=== PATIENT | female | born 1940 | race Two or more races ===

== ENCOUNTER 2016-08-22 09:41 | Emergency (ER) | payer MEDICARE, OTHER ==
[~2016-08-22] VITALS: Wt 72.7 kg
[2016-08-22] MEDS ORDERED: SOD CHLORIDE 0.9% 1,000 ML IV STA (09:57)
[2016-08-22] MEDS ORDERED: FAMOTIDINE 20 MG INJ IV STA (09:57)
[2016-08-22] MEDS ORDERED: ONDANSETRON 4 MG INJ IV STA (09:57)
[2016-08-22] MEDS ORDERED: LISI-313 PO (10:33)
[2016-08-22] MEDS ORDERED: DEXL60CA2 PO (10:33)
[2016-08-22] MEDS ORDERED: CLOP75TA27 PO (10:33)
[2016-08-22 10:45] LABS: BASOPHILS % 0.8 % (0.0-2.0); EOSINOPHILS # 0.1 10^3/ul (0.0-0.5); EOSINOPHILS % 1.7 % (0.0-7.0); HEMATOCRIT 40.5 % (37.0-47.0); HEMOGLOBIN 13.4 g/dl (12.0-16.0); LYMPHOCYTES % 33.7 % (15.0-51.0); MEAN CORPUSCULAR HEMOGLOBIN 30.4 pg (29.0-33.0); MEAN CORPUSCULAR HGB CONC 33.2 g/dl (32.0-37.0); MEAN CORPUSCULAR VOLUME 91.5 fl (82.0-101.0); MEAN PLATELET VOLUME 9.1 fl (7.4-10.4); MONOCYTE # 0.5 10^3/ul (0.3-0.9); MONOCYTES % 8.4 % (0.0-11.0); NEUTROPHIL # 3.3 10^3/ul (1.6-7.5); NEUTROPHILS % 55.4 % (39.0-77.0); PLATELET COUNT 199 10^3/UL (140-440); RED BLOOD COUNT 4.43 10^6/ul (4.20-5.40); RED CELL DISTRIBUTION WIDTH 13.1 % (11.5-14.5)
[2016-08-22 10:46] LABS: ADD UMIC YES; URINE BILIRUBIN (Dip) NEGATIVE (NEGATIVE); URINE BLOOD (Dip) 3+ (NEGATIVE); URINE COLOR LT. YELLOW (YELLOW); URINE GLUCOSE (Dip) NEGATIVE (NEGATIVE); URINE KETONES (Dip) NEGATIVE (NEGATIVE); URINE LEUKOCYTE ESTERASE (Dip) 1+ (NEGATIVE); URINE NITRITE (Dip) NEGATIVE (NEGATIVE); URINE TOTAL PROTEIN (Dip) NEGATIVE (NEGATIVE); URINE UROBILINOGEN (Dip) 0.2 E.U./dL (0.1-1.0)
[2016-08-22 10:47] LABS: CONDITION 1
[2016-08-22 10:51] LABS: ALBUMIN 4.2 g/dl (3.3-4.9)
[2016-08-22 10:54] LABS: ALBUMIN/GLOBULIN RATIO 1.23; BILIRUBIN,INDIRECT 0.5 mg/dl (0-1.1); BILIRUBIN,TOTAL 0.5 mg/dl (0.2-1.3); CALCIUM 9.3 mg/dl (8.4-10.2); CREATININE 0.6 mg/dl (0.44-1.00); TOTAL PROTEIN 7.6 g/dl (6.1-8.1)
[2016-08-22 11:04] LABS: BACTERIA,URINE RARE
--- NOTE | 2016-08-22 11:25 | RADRPT ---
PROCEDURE: CT Abdomen and Pelvis without contrast. CLINICAL INDICATION: Abdominal pelvic pain. TECHNIQUE: CT scan of the abdomen and pelvis without contrast was performed on a multidetector hig h-resolution CT scanner. The patient was scanned without intravenous contrast. Coronal and sagittal reformatted images were obtained from the axial source images. Images were reviewed on a high-resol [employer] PACS workstation. The total exam CTDI equals 16.64 mGy and the total exam DLP equals 910.73 mG y-cm. One or more of the following dose reduction techniques were used: - Automated exposure control. - Adjustment of the mA and/or kV according to patient size. - Use of iterative reconstruction technique. COMPARISON: None. FINDINGS: CT abdomen: The lung bases are clear. The heart size is normal, without pericardial thickening or effusion. Ab undant coronary artery atherosclerotic vascular calcifications are identified. The liver is normal in size and density without focal mass or intrahepatic biliary dilatation. The spleen is normal in size and homogeneous in density. The stomach is partially collapsed, but is grossly unremarkable. The pancreas as visualized is normal. The gallbladder is remarkable for a tiny layering gallstones; the biliary tree is unremarkable and there is no evidence for biliary dilatation. The adrenal glan ds are symmetric and normal. The kidneys are symmetrically unremarkable as well. Small 4 mm calcul us is seen in the right, nonobstructive in nature. No obstructive uropathy or mass lesion is seen. The aorta is of normal caliber. Aortic vascular calcifications are present. There is no retroperit avelar lymphadenopathy. The teri hepatis region is clear. The bowel and mesentery, as visualized, are equally unremarkable. The right colon is redundant and coiled, terminating in the right anterola teral mid abdomen region. The left colon is collapsed and decompressed. CT pelvis: The small bowel loops situated within the pelvis are unremarkable. The pelvic organs are remarkable for previous hysterectomy. The pelvic sidewalls and inguinal regions are clear. The sigmoid colon and rectum are collapsed and decompressed, but otherwise grossly unremarkable. No definite acute i nflammation is seen at this time. No mass or adenopathy is seen. No free fluid is present. No acute inflammation is identified at this time. The bladder is distended with mild anterior bladder wall thickening. The surrounding osseous structures are remarkable for degenerative spondylosis of the spine. No ost eolytic or osteoblastic lesion is detected. Moderate to severe compression fracture of the L4 verteb ral body is identified. There is moderate and significant anterolisthesis of L4 on L5. Severe disc ogenic disease with vacuum disk phenomenon seen for and L4-5 levels. Significant posterior element facet arthropathy of the lower lumbar spine is seen as well. Large anterior osteophytes with degene rate spondylosis of the lower thoracic and upper lumbar spine is also present. Significant multilev el neural foraminal narrowing of the lumbar spine is seen. IMPRESSION: 1. No acute abdominal pelvic inflammatory process is identified. 2. Small nonobstructing right lower pole renal calculus. 3. Small layering gallstones without evidence for acute cholecystitis. 4. Advanced diffuse scattered benign chronic age-related senescent changes. 5. No mass, lymphadenopathy, or evidence for neoplasm is present. 6. Severe chronic changes of the spine, as detailed above. 7. The left colon and sigmoid colon and rectum appears collapsed and decompressed at the time of th e study, without evidence for definite acute inflammation. RPTAT: HMJB .Giuliano Padron MD, Date Time Electronically viewed and signed by .Giuliano Padron MD, on 08/22/2016 11:24 .B/
--- NOTE | 2016-08-22 11:41 | ERD ---
ER Documentation Chief Complaint Date/Time DATE: 08/22/16 TIME: 11:39 Chief Complaint abdominal pain and diarrhea for the past 3 days , no vomiting HPI This is a 76-year-old female who presents to the emergency room for evaluation of abdominal cramping, and diarrhea that she has had for the past 3 days. The patient does state that diarrhea is watery diarrhea and describes it as frequent and worse with any type of oral food or fluid intake. She denies any recent travel. Denies any fevers associated with this. She was seen by her primary care physician and sent to the emergency room for evaluation. ROS All systems reviewed and are negative except as per history of present illness. Medications Home Meds Reported Medications Dexlansoprazole (Dexilant) 60 Mg Douglas., 60 MG PO DAILY, #30 CAP 08/22/16 Lisinopril* (Lisinopril*) 5 Mg Tablet, 5 MG PO DAILY, #30 TAB 08/22/16 Clopidogrel Bisulfate (Clopidogrel) 75 Mg Tablet, 75 MG PO DAILY, #30 TAB 08/22/16 Allergies Allergies: Coded Allergies: Unable to Assess (Verified Allergy, Severe, 08/22/16) PMhx/Soc Medical and Surgical Hx: pt denies Medical Hx, pt denies Surgical Hx Hx Alcohol Use: No Hx Substance Use: No Hx Tobacco Use: No Smoking Status: Never smoker Physical Exam Vitals Vital Signs Date Time Temp Pulse Resp B/P Pulse Ox O2 Delivery O2 Flow Rate FiO2 08/22/16 09:48 97.9 91 20 179/78 99 Physical Exam INITIAL VITAL SIGNS: Reviewed by me GENERAL: The patient is well developed and appropriate for usual state of health in no apparent distress HEENT: Pupils equal, round, and reactive to light. EOMI. There is no scleral icterus. NECK: C-spine is soft and supple, there is no meningismus. There is no cervical lymphadenopathy. LUNGS: Clear to auscultation bilaterally. There are no rales, wheezes or rhonchi. HEART: Regular rate and rhythm, no murmurs, clicks, rubs or gallops. ABDOMEN: Soft, non-tender, non-distended. There are bowel sounds in all four quadrants. No rebound or guarding. EXTREMITIES: There is no peripheral cyanosis or edema. No focal swelling or erythema. NEUROLOGICAL: The patient moves all four extremities with 5/5 strength. Cranial nerves II - XII are intact. Normal gait. Alert and oriented SKIN: There is no apparent rash or petechiae. HEME/LYMPHATIC: There is no evidence of excessive bruising or lymphedema. PSYCHIATRIC: The patient does not appear anxious or depressed. Result Diagram: 08/22/16 1027 08/22/16 1027 Results 24 hrs Laboratory Tests Test 08/22/16 10:00 08/22/16 10:27 Urine Bacteria RARE Urine Bilirubin NEGATIVE Urine Clarity CLEAR Urine Color LT. YELLOW Urine Epithelial Cells RARE Urine Glucose NEGATIVE% Urine Hemoglobin 3+ Urine Ketones NEGATIVE Urine Leukocyte Esterase 1+ Urine Microscopic RBC 2-5/HPF Urine Microscopic WBC 2-5/HPF Urine Nitrite NEGATIVE Urine Specific [place] 1.010 Urine Total Protein NEGATIVE Urine Urobilinogen 0.2 E.U./dL Urine pH 6.5 Alanine Aminotransferase (ALT/SGPT) 21IU/L Albumin 4.2g/dl Albumin/Globulin Ratio 1.23 Alkaline Phosphatase 84IU/L Anion Gap 16 Aspartate Amino Transf (AST/SGOT) 21IU/L Basophils # 0.010^3/ul Basophils % 0.8% Blood Urea Nitrogen 10mg/dl Calcium Level 9.3mg/dl Carbon Dioxide Level 26mmol/L Chloride Level 102mmol/L Creatinine 0.60mg/dl Direct Bilirubin 0.00mg/dl Eosinophils # 0.110^3/ul Eosinophils % 1.7% Globulin 3.40g/dl Glucose Level 91mg/dl Hematocrit 40.5% Hemoglobin 13.4g/dl Indirect Bilirubin 0.5mg/dl Lipase 87U/L Lymphocytes # 2.010^3/ul Lymphocytes % 33.7% Mean Corpuscular Hemoglobin 30.4pg Mean Corpuscular Hemoglobin Concent 33.2g/dl Mean Corpuscular Volume 91.5fl Mean Platelet Volume 9.1fl Monocytes # 0.510^3/ul Monocytes % 8.4% Neutrophils # 3.310^3/ul Neutrophils % 55.4% Nucleated Red Blood Cells # 0.010^3/ul Nucleated Red Blood Cells % 0.0/100WBC Platelet Count 62412^3/UL Potassium Level 4.0mmol/L Red Blood Count 4.4310^6/ul Red Cell Distribution Width 13.1% Sodium Level 140mmol/L Total Bilirubin 0.5mg/dl Total Protein 7.6g/dl White Blood Count 6.010^3/ul Current Medications Medications (Trade) Dose Ordered Sig/Ike Route PRN Reason Start Time Stop Time Status Last Admin Dose Admin Sodium Chloride (NS) 1,000 ml @ 1,000 mls/hr Q1H STAT IV 08/22/16 09:57 08/22/16 10:56 DC 08/22/16 10:35 Ondansetron HCl (Zofran Inj) 4 mg ONCE STAT IV 08/22/16 09:57 08/22/16 09:58 DC 08/22/16 10:35 Famotidine (Pepcid Iv) 20 mg ONCE STAT IV 08/22/16 09:57 08/22/16 09:58 DC 08/22/16 10:35 Procedures/MDM CT abdomen pelvis without: 1. No acute abdominal pelvic inflammatory process is identified. 2. Small nonobstructing right lower pole renal calculus. 3. Small layering gallstones without evidence for acute cholecystitis. 4. Advanced diffuse scattered benign chronic age-related senescent changes. 5. No mass, lymphadenopathy, or evidence for neoplasm is present. 6. Severe chronic changes of the spine, as detailed above. 7. The left colon and sigmoid colon and rectum appears collapsed and decompressed at the time of the study, without evidence for definite acute inflammation. This 76-year-old female presents to the emergency room for evaluation of cramping and diarrhea. This patient had lab work drawn in the emergency room, CT of the abdomen and pelvis was obtained which does not show any obstruction or any acute cholecystitis. The patient was given 1 L of fluids. She was also given Zofran and Pepcid. On my reevaluation she is doing much better, no episodes of diarrhea here in the emergency room. This patient was instructed to stay hydrated and will be discharged home at this time. Departure Diagnosis: Primary Impression: Abdominal pain Additional Impression: Diarrhea Condition: Stable MERCEDES MENDENHALL DO Aug 22, 2016 11:41
[2016-08-22 12:00] VITALS: BP 137/68; PULSE 79; RESP 20; TEMP 98
== END 2016-08-22 12:03 | disposition home or self-care (01) ==
LOC: E/R 09:41
DX: R10.9 Unspecified abdominal pain (principal); R19.7 Diarrhea, unspecified
CPT/HCPCS: 36415; 74176; 80053; 81001; 81003; 83690; 85025; 96374; 96375; 99285; J2405; J7030